=== PATIENT | male | born 1950 | race Caucasian/White ===

== ENCOUNTER 2020-07-06 10:37 | Outpatient (CLI) | payer MEDICARE ==
[2020-07-07 15:09] LABS: SARS-CoV-2 MS2 Positive; SARS-CoV-2 N Gene Negative; SARS-CoV-2 S Gene Negative; SARS-CoV-2 by NAA Not Detected (NotDetected); SARS-CoV-2 orf1ab Negative
== END 2020-07-06 10:38 | disposition home or self-care (01) ==
LOC: LABBT 10:37
PROVIDERS: ATTEND Internal Medicine
DX: R13.10 Dysphagia, unspecified (principal); Z20.828 Contact with and (suspected) exposure to other viral communicable diseases
CPT/HCPCS: 87635; U0003

== ENCOUNTER 2020-07-11 06:05 | Day surgery (SDC) | payer MEDICARE ==
[2020-07-10 08:10] VITALS: BMI 24.8
[2020-07-11] MEDS ORDERED: Famotidine/PF 20 mg/2ml Vial ONE (07:36)
[2020-07-11] MEDS ORDERED: Ondansetron PF 4 MG/2 ML Vial ONE ×2 (07:36→10:41)
--- NOTE | 2020-07-11 09:41 | OP ---
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 PROCEDURE PERFORMED: Esophagogastroduodenoscopy with esophageal dilation over guidewire. INDICATIONS: Esophageal dysphagia. MEDICATIONS: See Anesthesia record. FINDINGS: After discussion of the risks, benefits, and alternatives of the procedure, informed consent was obtained and witnessed. Preendoscopic cardiopulmonary examination was satisfactory. Time-out was performed before sedation was achieved. Sedation was achieved with Anesthesia assistance in the endoscopy unit. A Pentax adult upper endoscope was placed into the oropharynx and passed through the cricopharyngeus under direct visualization. The esophageal mucosa appeared normal throughout with a normal-appearing Z-line at 40 cm from the incisors. There was no evidence of any inflammation, mass lesion or fibrosis throughout the esophagus. The endoscope was advanced beyond the GE junction into the stomach. Forward and retroflexed views of the entire gastric mucosa were obtained. The gastric mucosa appeared normal throughout. There was a small hiatal hernia. The endoscope was then advanced through the pylorus and into the first and second portions of the duodenum, which also appeared normal. At this point, a spring tipped guidewire was passed down the accessory port and the spring tip placed in the gastric antrum. The endoscope was then removed leaving the wire in place. A single pass was made with an 18 mm Savary dilator over the guidewire with mild resistance. The dilator and guidewire were then both removed. The esophagus was reintubated for repeat examination and demonstrated no change. The upper endoscope was completely withdrawn and the patient allowed to recover. The patient tolerated the procedure well. There were no immediate postprocedure complications. IMPRESSION: 1. Small hiatal hernia. 2. Otherwise normal EGD. 3. No endoscopic explanation for the patient's dysphagia symptoms. Esophagus empirically dilated to 18 mm, with no mucosal disruption. RECOMMENDATION: 1. Continue daily omeprazole. 2. Advance diet. 3. Chew food thoroughly. 4. Follow up in [facility] Clinic in 1 month. Job ID: [id number]
[2020-07-11] MEDS ORDERED: PROPOFOL 200 MG/20 ML VIAL ONE (10:41)
[2020-07-11] MEDS ORDERED: Lidocaine 1% PF 5 ML VIAL ONE (10:41)
== END 2020-07-11 09:40 | disposition home or self-care (01) ==
LOC: SDC 06:05
PROVIDERS: ATTEND Internal Medicine
PROC: 0D758ZZ Dilation of Esophagus, Via Natural or Artificial Opening Endoscopic (ICD-10-PCS; principal; 2020-07-11)
DX: K44.9 Diaphragmatic hernia without obstruction or gangrene (principal); K21.9 Gastro-esophageal reflux disease without esophagitis; I11.0 Hypertensive heart disease with heart failure; I50.9 Heart failure, unspecified; E11.9 Type 2 diabetes mellitus without complications; E78.00 Pure hypercholesterolemia, unspecified; E78.5 Hyperlipidemia, unspecified; I25.10 Atherosclerotic heart disease of native coronary artery without angina pectoris; G47.30 Sleep apnea, unspecified; N40.0 Benign prostatic hyperplasia without lower urinary tract symptoms; Z79.02 Long term (current) use of antithrombotics/antiplatelets; Z79.4 Long term (current) use of insulin; Z79.899 Other long term (current) drug therapy; Z95.1 Presence of aortocoronary bypass graft
CPT/HCPCS: 93005; 93010; J2405; J2704; S0028